=== PATIENT | male | born 1990 | race African-American/Black ===

== ENCOUNTER 2016-11-22 22:36 | Emergency (ER) | payer SELFPAY ==
--- NOTE | 2016-11-22 22:49 | PDOC ---
History of Present Illness - General History Source: Patient Exam Limitations: No Limitations - History of Present Illness Initial Comments: 11/22/16 23:36 The patient is a 26 year old male with no significant PMH who presents to the emergency department with chest pain beginning approximately this afternoon. The patient reports that the pain began in his right flank, which then radiated to his mid back, midsternal chest area, and eventually settled in the left side of the chest. The patient notes that his chest pain was first mild at about 3- 4PM, but got significantly worse beginning 2 hours ago. The patient describes the chest pain as a stabbing sensation, which was 10/10 in severity at its worst but is at 3/10 upon presentation in the ED. He denies midback or midsternal chest pain, but endorses some right flank pain. The patient also reports a headache which he believes is due to not eating. Upon questioning, the patient noticed that his right leg has been slightly larger than his left for the past month. He endorses recent travel from [place] in September. The patient denies shortness of breath and dizziness. Denies fever, chills, nausea, vomit, diarrhea and constipation. Denies dysuria, frequency, urgency and hematuria. Allergies: NKA Social history: No reported cigarette, alcohol, or drug use. <Tony Lux - Last Filed: 11/22/16 23:36> <Avni Oconnell - Last Filed: 11/23/16 02:23> - General Stated Complaint: CHEST PAIN Time Seen by Provider: 11/22/16 22:48 Past History <Tony Lux - Last Filed: 11/22/16 23:36> <Avni Oconnell - Last Filed: 11/23/16 02:23> - Past Medical History Allergies/Adverse Reactions: Allergies Allergy/AdvReac Type Severity Reaction Status Date / Time No Known Allergies Allergy Verified 11/22/16 23:01 Review of Systems - Review of Systems Constitutional: No: Chills, Fever, Night Sweats Respiratory: Yes: Shortness of Breath. No: Cough Cardiac (ROS): Yes: Chest Pain, Edema. No: Syncope ABD/GI: No: Nausea, Vomiting : No: Dysuria Neurological: No: Headache All Other Systems: Reviewed and Negative <Avni Oconnell - Last Filed: 11/23/16 02:23> *Physical Exam - Vital Signs Last Vital Signs Temp Pulse Resp BP Pulse Ox 92 H 14 120/82 100 11/22/16 23:01 11/22/16 23:01 11/22/16 23:01 11/22/16 23:01 - Physical Exam Comments: 11/22/16 23:36 GENERAL: The patient is awake, alert, and fully oriented, in no acute distress. HEAD: Normal with no signs of trauma. EYES: Pupils equal, round and reactive to light, extraocular movements intact, sclera anicteric, conjunctiva clear with no pallor. ENT: Ears normal, nares patent, oropharynx clear without exudates. Moist mucous membranes. NECK: Normal range of motion, supple without lymphadenopathy, JVD, or masses. LUNGS: Breath sounds equal, clear to auscultation bilaterally. No wheeze/ crackles. HEART: Regular rate and rhythm, normal S1 and S2 without murmur or rub. ABDOMEN: Soft/nontender/nondistended. BS wnl. No guarding or rebound. No palpable masses. No hepatosplenomegaly. EXTREMITIES: (+) +1 pitting edema in the right lower extremity. RLE noticeably larger than left. Normal range of motion. No clubbing or cyanosis. No cords, erythema, or tenderness. NEUROLOGICAL: Cranial nerves II through XII grossly intact. Normal speech, normal gait. PSYCH: Normal mood, normal affect. SKIN: Warm, Dry, normal turgor, no rashes or lesions noted. <Tony Lux - Last Filed: 11/22/16 23:36> Heart Score/ECG Review #1 ECG reviewed & interpreted by me at: 22:53 General ECG Interpretation: Sinus Rhythm, Normal Rate (87), Normal Intervals ( qtc 401), No acute ischemic changes (borderline LVH, isolated KAMALJIT V3 without contiguous lead KAMALJIT or reciprocal changes) <Avni Oconnell - Last Filed: 11/23/16 02:23> ED Treatment Course - LABORATORY CBC & Chemistry Diagram: 11/22/16 23:20 11/22/16 23:20 - Medications Given in the ED: ED Medications Discontinued Medications Generic Name Dose Route Start Last Admin Trade Name Freq PRN Reason Stop Dose Admin Morphine Sulfate 2 mg 11/22/16 23:04 11/22/16 23:35 Morphine Injection - IVPUSH 11/22/16 23:05 2 mg ONCE ONE Administration <Tony Lux - Last Filed: 11/22/16 23:36> - LABORATORY CBC & Chemistry Diagram: 11/22/16 23:20 11/22/16 23:20 <Avni Oconnell - Last Filed: 11/23/16 02:23> Medical Decision Making - Critical Care Time Total Critical Care Time (minutes): 30 Critical Care Statement: The care of this patient involved high complexity decision making to prevent further life threatening deterioration of the patient 's condition and/or to evaluate & treat vital organ system(s) failure or risk of failure. - Medical Decision Making 11/22/16 23:08 A portion of this note was documented by scribe services under my direction. I have reviewed the details of the note, within reason, and agree with the documentation with the following case summary and management plan written by me. Healthy 26-year-old male with no severe past medical history visiting from [place] brought in by ambulance for evaluation of chest pain that began this afternoon around 3 PM. Patient was in his usual state of normal health, under no acute distress or exertion, developed initially right flank pain that radiated to his back and then became localized to his left chest, was 10 out of 10 in severity for most of the day but now improving to 3 out of 10, pleuritic in nature, but no associated cough or fever/chills. Has never had pain like this before, denies any smoking or drug use, denies any personal or family history of early heart or stroke disease, denies any personal or family history of clotting disease. On pursuing further history, has noticed that his right leg has been slightly larger over the last month. Vital signs as noted, heart rate 88 with 100% O2 sat on room air Lying in stretcher in no acute respiratory distress, speaking full sentences No JVD S1-S2 with regular rate, no murmurs. pleuritic pain evident on exam, ? decreased BS left base, no crackles or wheezing. symmetric chest rise abd soft RLE 1-2+ edema but no calf ttp, R calf larger than left L upper lip folliculitis Healthy 26-year-old male presents with acute onset chest pain since this afternoon. Vital signs are normal, presentation suspicious for PE/DVT particularly in light of recent travel, question pneumothorax, question dissection, seems less likely ACS. Stat EKG showed questionable LVH given the patient's age, isolated ST elevation in V3 without contiguous ST elevation or reciprocal change We'll proceed with workup including labs Chest x-ray followed by CT of the chest, lower extremity doppler Pain control bactrim for upper lip folliculitis/induration. no abscess currently Reassess 11/23/16 00:00 on my prelim review of the CXR, no obvious PTX. Will proceed with labs and likely CTA imaging for PE. 11/23/16 00:23 ddimer positive. trop pending. 11/23/16 01:45 no dvt in either extremity. Cr 1.4 but normal eGFR. trop and bnp negative. awaiting cta chest. will need serial trop x2 if cta negative. Will place patient on observation to monitor on tele, reassess, and trend troponin. 11/23/16 02:22 CTA pending, we'll proceed despite creatinine 1.4 given normal GFR. Was hydrated with 1 L of normal saline. Patient was signed out to the oncoming ED physician to follow-up the results of the CTA and 2nd troponin, reassess the patient, and dispo accordingly. <Avni Oconnell - Last Filed: 11/23/16 02:23> *DC/Admit/Observation/Transfer - Attestations Scribe Attestion: 11/22/16 23:37 Documentation prepared by Tony Lux, acting as hospital medical biller for Avni Oconnell MD. <Tony Lux - Last Filed: 11/22/16 23:36> <Avni Oconnell - Last Filed: 11/23/16 02:23> Diagnosis at time of Disposition: Precordial chest pain - Discharge Dispostion Condition at time of disposition: Fair
[2016-11-22] MEDS ORDERED: morphine CARPU-JECT 4 MG/1 ML DISP.SYRIN IVPUSH ONE (23:04)
[2016-11-22] MEDS ORDERED: SODIUM CHLORIDE 1,000 ML IV ONE (23:04)
[2016-11-22 23:19] VITALS: BMI 20.9
[2016-11-22 23:29] LABS: BASOPHIL 0.5 % (0-2.0); EOSINOPHIL 0.4 % (0-4.5); MCH 29.3 pg (25.7-33.7); MCHC 33.4 g/dl (32.0-35.9); MEAN CELL VOLUME 87.6 fl (80-96); MEAN PLT VOLUME 7.8 fl (7.5-11.1); NEUTROPHILS 74.2 % (42.8-82.8); PLATELET COUNT 189 K/MM3 (134-434); RDW 14.1 % (11.9-15.9); WHITE BLOOD COUNT 8.7 K/mm3 (4.0-10.0)
[2016-11-22] MEDS ORDERED: morphine CARPU-JECT 2 MG/1 ML DISP.SYRIN ONE (23:29)
[2016-11-22 23:53] LABS: INR 1.19 (0.82-1.09); PROTHROMBIN TIME (PATIENT) 13.1 SEC (9.98-11.88)
[2016-11-22 23:56] LABS: ACTIVATED PTT 29.6 SECONDS (26.9-34.4)
[2016-11-23 01:01] LABS: ALBUMIN 4.2 g/dl (3.4-5.0); ANION GAP 11 (8-16); BILIRUBIN,TOTAL 0.3 mg/dL (0.2-1.0); CALCIUM 9.3 mg/dL (8.5-10.1); CO2 27 mmol/L (21-32); CREATININE 1.4 mg/dL (0.7-1.3); GLUCOSE,RANDOM 100 mg/dL (74-106); MAGNESIUM 2.3 mg/dL (1.8-2.4); SGOT/AST 35 U/L (15-37); SGPT/ALT 21 U/L (12-78); TOT PROT 7.6 g/dl (6.4-8.2)
[2016-11-23 01:04] LABS: ALK PHOS 74 U/L (45-117); CPK 558 IU/L (39-308); TROPONIN I < 0.02 ng/ml (0.00-0.05)
[2016-11-23] MEDS ORDERED: SULFAMETHOXAZOLE/TRIMETHOPRIM 800MG/160MG D.S. TABLET PO ONE (02:12)
[2016-11-23] MEDS ORDERED: CEFTRIAXONE 1 GM in DEXTROSE 5%-WATER - 50 ML IVPB ONE (04:13)
[2016-11-23] MEDS ORDERED: AZITHROMYCIN 500 MG TABLET PO ONE (04:14)
--- NOTE | 2016-11-23 04:14 | PDOC ---
*Physical Exam - Vital Signs Last Vital Signs Temp Pulse Resp BP Pulse Ox 99.7 F H 92 H 14 120/82 100 11/23/16 03:07 11/22/16 23:01 11/22/16 23:01 11/22/16 23:01 11/22/16 23:01 <Andrew Colunga - Last Filed: 11/23/16 04:41> - Vital Signs Last Vital Signs Temp Pulse Resp BP Pulse Ox 99.7 F H 92 H 14 120/82 100 11/23/16 03:07 11/22/16 23:01 11/22/16 23:01 11/22/16 23:01 11/22/16 23:01 <Chaya Del Angel - Last Filed: 11/23/16 05:20> ED Treatment Course - LABORATORY CBC & Chemistry Diagram: 11/22/16 23:20 11/22/16 23:20 - ADDITIONAL ORDERS Additional order review: Laboratory Results 11/22/16 11/22/16 11/22/16 23:20 23:20 23:20 PT with INR 13.10 H INR 1.19 H PTT (Actin FS) 29.6 D-Dimer 374 H Sodium 139 Potassium 3.6 Chloride 101 Carbon Dioxide 27 Anion Gap 11 BUN 12 Creatinine 1.4 H Creat Clearance w eGFR > 60 Random Glucose 100 Calcium 9.3 Magnesium 2.3 Total Bilirubin 0.3 AST 35 ALT 21 Alkaline Phosphatase 74 Creatine Kinase 558 H Troponin I < 0.02 B-Natriuretic Peptide 20.14 Total Protein 7.6 Albumin 4.2 Blood Type O POSITIVE Antibody Screen Negative 11/22/16 23:20 RBC 4.66 MCV 87.6 MCHC 33.4 RDW 14.1 MPV 7.8 Neutrophils % 74.2 Lymphocytes % 15.0 Monocytes % 9.9 Eosinophils % 0.4 Basophils % 0.5 - Medications Given in the ED: ED Medications Discontinued Medications Generic Name Dose Route Start Last Admin Trade Name Freq PRN Reason Stop Dose Admin Sodium Chloride 1,000 mls @ 1,000 mls/hr 11/22/16 23:04 11/22/16 23:35 Normal Saline - IV 11/23/16 00:03 1,000 mls/hr ONCE ONE Administration Morphine Sulfate 2 mg 11/22/16 23:04 11/22/16 23:35 Morphine Injection - IVPUSH 11/22/16 23:05 2 mg ONCE ONE Administration <Andrew Colunga - Last Filed: 11/23/16 04:41> - LABORATORY CBC & Chemistry Diagram: 11/22/16 23:20 11/22/16 23:20 - ADDITIONAL ORDERS Additional order review: Laboratory Results 11/22/16 11/22/16 11/22/16 23:20 23:20 23:20 PT with INR 13.10 H INR 1.19 H PTT (Actin FS) 29.6 D-Dimer 374 H Sodium 139 Potassium 3.6 Chloride 101 Carbon Dioxide 27 Anion Gap 11 BUN 12 Creatinine 1.4 H Creat Clearance w eGFR > 60 Random Glucose 100 Calcium 9.3 Magnesium 2.3 Total Bilirubin 0.3 AST 35 ALT 21 Alkaline Phosphatase 74 Creatine Kinase 558 H Troponin I < 0.02 B-Natriuretic Peptide 20.14 Total Protein 7.6 Albumin 4.2 Blood Type O POSITIVE Antibody Screen Negative 11/22/16 23:20 RBC 4.66 MCV 87.6 MCHC 33.4 RDW 14.1 MPV 7.8 Neutrophils % 74.2 Lymphocytes % 15.0 Monocytes % 9.9 Eosinophils % 0.4 Basophils % 0.5 - Medications Given in the ED: ED Medications Discontinued Medications Generic Name Dose Route Start Last Admin Trade Name Freq PRN Reason Stop Dose Admin Sodium Chloride 1,000 mls @ 1,000 mls/hr 11/22/16 23:04 11/22/16 23:35 Normal Saline - IV 11/23/16 00:03 1,000 mls/hr ONCE ONE Administration Morphine Sulfate 2 mg 11/22/16 23:04 11/22/16 23:35 Morphine Injection - IVPUSH 11/22/16 23:05 2 mg ONCE ONE Administration <Chaya Del Angel - Last Filed: 11/23/16 05:20> Medical Decision Making - Medical Decision Making 11/23/16 04:13 CT chest results show no PE. However, pt has JACK and RLL PNAs. Pt covered with ceftriaxone and azithro. <Andrew Colunga - Last Filed: 11/23/16 04:41> *DC/Admit/Observation/Transfer - Discharge Dispostion Admit: No <Andrew Colunga - Last Filed: 11/23/16 04:41> - Discharge Dispostion Admit: No <Chaya Del Angel - Last Filed: 11/23/16 05:20> Diagnosis at time of Disposition: Multifocal pneumonia - Discharge Dispostion Disposition: HOME Condition at time of disposition: Fair - Prescriptions
[2016-11-23 04:41] LABS: CPK 482 IU/L (39-308)
[2016-11-23 04:42] LABS: TROPONIN I < 0.02 ng/ml (0.00-0.05)
[2016-11-23] MEDS ORDERED: SULFAMETHOXAZOLE/TRIMETHOPRIM 800MG/160MG D.S. TABLET ONE (05:21)
[2016-11-23] MEDS ORDERED: CEFTRIAXONE 50 ML ONE (05:21)
[2016-11-23 05:35] VITALS: BP 111/60; PULSE 70; TEMP 98.9
--- NOTE | 2016-11-23 09:13 | EKG ---
Test Reason : Blood Pressure : / mmHG Vent. Rate : 087 BPM Atrial Rate : 087 BPM P-R Int : 206 ms QRS Dur : 084 ms QT Int : 334 ms P-R-T Axes : 079 070 030 degrees QTc Int : 401 ms NORMAL SINUS RHYTHM POSSIBLE LEFT ATRIAL ENLARGEMENT NONSPECIFIC T WAVE ABNORMALITY NO PREVIOUS ECGS AVAILABLE Confirmed by CHANO REESE MD ([id number]) on 11/23/2016 9:12:54 AM Referred By: Confirmed By:CHANO REESE MD
== END 2016-11-23 05:36 | disposition home or self-care (01) ==
LOC: JER 22:36 → UNDOADMOB 11-23 02:13 → JERBED 11-23 02:13 → JER 11-23 05:36
PROC: 3E03329 Introduction of Other Anti-infective into Peripheral Vein, Percutaneous Approach (ICD-10-PCS; principal; 2016-11-22)
PROC: 3E033NZ Introduction of Analgesics, Hypnotics, Sedatives into Peripheral Vein, Percutaneous Approach (ICD-10-PCS; 2016-11-22)
PROC: 3E0337Z Introduction of Electrolytic and Water Balance Substance into Peripheral Vein, Percutaneous Approach (ICD-10-PCS; 2016-11-22)
DX: R07.2 Precordial pain (principal)
CPT/HCPCS: 36415; 71020-TC; 71275-TC; 80053; 82553; 83735; 83880; 84484; 85025; 85379; 85610; 85730; 86850; 86900; 86901; 93005; 93010; 93970-TC; 99283-25

== ENCOUNTER 2016-11-27 20:19 | Emergency (ER) | payer SELFPAY ==
[2016-11-27 20:48] VITALS: BP 135/53; PULSE 66; TEMP 98.5; BMI 22.6
--- NOTE | 2016-11-27 22:19 | PDOC ---
History of Present Illness - General Chief Complaint: Respiratory Stated Complaint: PNEUMONIA Time Seen by Provider: 11/27/16 21:55 History Source: Patient Exam Limitations: No Limitations - History of Present Illness Initial Comments: 11/27/16 22:37 26-year-old male with no medical history presents to the emergency department complaining of pleuritic chest pain without fever, chills, nausea/vomiting, neck pain, back pains, shortness of breath, abdominal pains, flank pains, urinary symptoms. Patient was seen in the emergency department as November 23 and was diagnosed with pneumonia. Patient was on Z-Arsalan for the past 5 days but states he is still having discomfort. Timing/Duration: reports: week Past History - Past Medical History Allergies/Adverse Reactions: Allergies Allergy/AdvReac Type Severity Reaction Status Date / Time No Known Allergies Allergy Verified 11/27/16 20:48 Home Medications: Ambulatory Orders NK [No Known Home Medication] 11/27/16 - Suicide/Smoking/Psychosocial Hx Smoking History: Never smoked Have you smoked in the past 12 months: No Information on smoking cessation initiated: No Hx Alcohol Use: No Drug/Substance Use Hx: No Review of Systems - Review of Systems Able to Perform ROS?: Yes Comments:: 11/27/16 22:39 CONSTITUTIONAL: Absent: fever, chills, diaphoresis, generalized weakness, malaise, loss of appetite HEENT: Absent: rhinorrhea, nasal congestion, throat pain, throat swelling, difficulty swallowing, mouth swelling, ear pain, eye pain, visual Changes CARDIOVASCULAR: Absent: chest pain, loss of consciousness, palpitations, irregular heart rate, peripheral edema RESPIRATORY: Absent: cough, shortness of breath, dyspnea with exertion, orthopnea, wheezing, stridor, hemoptysis GASTROINTESTINAL: Absent: abdominal pain, abdominal distension, nausea, vomiting, diarrhea, constipation, melena, hematochezia GENITOURINARY: Absent: dysuria, frequency, urgency, hesitancy, hematuria, flank pain, genital pain MUSCULOSKELETAL: Absent: myalgia, arthralgia, joint swelling SKIN: Absent: rash, itching, pallor HEMATOLOGIC/IMMUNOLOGIC: Absent: easy bleeding, easy bruising, lymphadenopathy, frequent infections ENDOCRINE: Absent: unexplained weight gain, unexplained weight loss, heat intolerance, cold intolerance NEUROLOGIC: Absent: headache, focal weakness or paresthesias, dizziness, unsteady gait, seizure, mental status changes, bladder or bowel incontinence PSYCHIATRIC: Absent: anxiety, depression, suicidal or homicidal ideation, hallucinations. Is the patient limited Barbadian proficient: No *Physical Exam - Vital Signs Last Vital Signs Temp Pulse Resp BP Pulse Ox 98.5 F 66 18 135/53 100 11/27/16 20:42 11/27/16 20:42 11/27/16 20:42 11/27/16 20:42 11/27/16 20:42 - Physical Exam Comments: 11/27/16 22:39 GENERAL: Well developed, well nourished. Awake and alert. No acute distress. HEENT: Normocephalic, atraumatic. PERRLA, EOMI. No conjunctival pallor. Sclera are non- icteric. Moist mucous membranes. Oropharynx is clear. NECK: Supple. Full ROM. No JVD. Carotid pulses 2+ and symmetric, without bruits. No thyromegaly. No lymphadenopathy. CARDIOVASCULAR: Regular rate and rhythm. No murmurs, rubs, or gallops. Distal pulses are 2+ and symmetric. PULMONARY: No evidence of respiratory distress. Lungs clear to auscultation bilaterally. No wheezing, rales or rhonchi. ABDOMINAL: Soft. Non-tender. Non-distended. No rebound or guarding. No organomegaly. Normoactive bowel sounds. MUSCULOSKELETAL Normal range of motion at all joints. No bony deformities or tenderness. No CVA tenderness. EXTREMITIES: No cyanosis. No clubbing. No edema. No calf tenderness. SKIN: Warm and dry. Normal capillary refill. No rashes. No jaundice. NEUROLOGICAL: Alert, awake, appropriate. Cranial nerves 2-12 intact. No deficits to light touch and temperature in face, upper extremities and lower extremities. No motor deficits in the in face, upper extremities and lower extremities. Normoreflexic in the upper and lower extremities. Normal speech. Toes are down- going bilaterally. Gait is normal without ataxia. PSYCHIATRIC: Cooperative. Good eye contact. Appropriate mood and affect. ED Treatment Course - RADIOLOGY Radiology Studies Ordered: Category Date Time Status CHEST PA & LAT [RAD] Stat Radiology 11/27/16 21:38 Ordered *DC/Admit/Observation/Transfer Diagnosis at time of Disposition: Musculoskeletal chest pain - Discharge Dispostion Disposition: HOME Condition at time of disposition: Stable Admit: No - Referrals Referrals: Neptali Kinsey MD [Staff Physician] - Ricardo Cantor MD [Staff Physician] - - Patient Instructions Printed Discharge Instructions: DI for Musculoskeletal Pain Additional Instructions: Increase fluids Take Tylenol Motrin as needed for pain Follow-up with your physician or the one listed on your discharge
[2016-11-28 01:37] LABS: CPK 274 IU/L (39-308); TROPONIN I < 0.02 ng/ml (0.00-0.05)
--- NOTE | 2016-12-06 14:20 | EKG ---
Test Reason : Blood Pressure : / mmHG Vent. Rate : 051 BPM Atrial Rate : 051 BPM P-R Int : 186 ms QRS Dur : 100 ms QT Int : 398 ms P-R-T Axes : 062 079 047 degrees QTc Int : 366 ms SINUS BRADYCARDIA ABNORMAL ECG WHEN COMPARED WITH ECG OF 22-NOV-2016 22:53, VENT. RATE HAS DECREASED BY 36 BPM Confirmed by LISSETH GALAN MD ([id number]) on 12/06/2016 2:19:43 PM Referred By: Confirmed By:LISSETH GALAN MD
== END 2016-11-28 02:33 | disposition home or self-care (01) ==
LOC: JER 20:19
DX: R07.89 Other chest pain (principal)
CPT/HCPCS: 36415; 71020-TC; 82553; 84484; 93005; 93010; 99281-25